=== PATIENT | female | born 1970 | race Caucasian/White ===

== ENCOUNTER → 2019-11-19 16:05 | Outpatient (CLI) | payer MEDICARE, MEDICAID, SELFPAY ==
--- NOTE | 2019-11-19 15:00 | CYSPIN_PTH ---
PATIENT: CONCHITA DELGADO LOC: [facility] U#:[id number] AGE/SX: 54/F ROOM: RE11/19/[address]: Dr. Chris Espinal MD : 1970 BED: DIS: SPEC #: [id number] RECD: 11/20/19 08:14 STATUS: RJ REAbigail #: [id number] SHAYAN: 11/19/19 15:[address]: Chris Espinal DEPT: CYTOLOGY RECD BY: Cody Fitch ENTERED: 11/20/19 08:14 SP TYPE: CYSPIN FL OTHR DR: Dr. Don Ribeiro, Tissues: Urine Procedures: Pap Stain (control) Special Stain Group II Cytospin Fluid HEADER OPERATION: Not noted PRE-OP DIAGNOSIS: Microscopic hematuria TISSUE SUBMITTED: Urine for cytology DIAGNOSIS CYTOLOGY Urine for cytology (cytospin): Negative for malignant cells. Mild acute inflammation. See comment. BRIELLE:aisha 11/23/19 COMMENT Clinical correlation and appropriate follow up are necessary. CYTOLOGY STUDY Slides are reviewed. CYTOLOGY GROSS Received is 70 ml of light yellow cloudy fluid labeled with the patient's name and and designated per the requisition as urine. Submitted for cytology preparation. / aisha 11/20/19 TC:2 CPT: 81431
[2019-11-19 16:18] LABS: Cytology, Body Fluid / CSF SEE PATHOLOGY REPORT
== END ==
PROVIDERS: PCP Family Medicine; Referring Provider Urology; Visit Provider Urology
DX: R31.21 Asymptomatic microscopic hematuria (principal)
CPT/HCPCS: 88108; 88313